=== PATIENT | female | born 1960 | race African-American/Black ===

== ENCOUNTER 2019-04-22 10:15 | Inpatient (IN) | payer OTHER ==
[~2019-04-22] VITALS: Ht 243.8 cm; Wt 52.6 kg
[2019-04-22 10:36] VITALS: BP 184/101
[2019-04-22 10:52] LABS: BASOPHILS % (AUTO) 0.3 % (0.0-2.0); EOSINOPHILS # (AUTO) 0.1 K/uL (0-0.4); EOSINOPHILS % (AUTO) 1.9 % (0.0-4.0); HEMATOCRIT 35.9 % (36-48); LYMPHOCYTES # (AUTO) 1.9 K/uL (2.5-16.5); LYMPHOCYTES % (AUTO) 39.5 % (20.5-51.1); MEAN CORPUSCULAR HEMOGLOBIN 29 pg (27-31); MEAN CORPUSCULAR HGB CONC 33 g/dL (33-37); MEAN CORPUSCULAR VOLUME 85.3 fL (80-94); MONOCYTES # (AUTO) 0.4 K/uL (0.8-1.0); MONOCYTES % (AUTO) 8.4 % (1.7-9.3); NEUTROPHILS # (AUTO) 2.4 K/uL (1.8-7.7); NEUTROPHILS % (AUTO) 49.9 % (42.2-75.2); PLATELET COUNT (AUTO) 273 K/uL (140-450); RED BLOOD CELL COUNT(AUTO) 4.21 MIL/uL (4.20-5.40); RED CELL DISTRIBUTION WIDTH 15.9 % (11.6-13.7); WHITE BLOOD COUNT (AUTO) 4.9 K/uL (4.8-10.8)
[2019-04-22] MEDS ORDERED: NITROGLYCERIN 2% 1 GM PKT TP ONE (11:05)
[2019-04-22] MEDS ORDERED: ASPIRIN 81 MG TAB.CHEW PO ONE (11:05)
[2019-04-22] MEDS ORDERED: ONDANSETRON 4 MG/2 ML VIAL IVP ONE (11:05)
[2019-04-22] MEDS ORDERED: fentaNYL 0.05 MG/ML VIAL IVP ONE (11:05)
[2019-04-22 11:09] LABS: ANION GAP 12.6 (8-16); CARBON DIOXIDE 26.9 mmol/L (21-32); POTASSIUM 4.5 mmol/L (3.5-5.1)
[2019-04-22 11:15] LABS: ALBUMIN 4.1 g/dL (3.4-5.0); TOTAL BILIRUBIN 0.3 mg/dL (0.0-1.0)
[2019-04-22] MEDS ORDERED: BUPR300T70 PO (11:55)
[2019-04-22] MEDS ORDERED: SPIR50TA PO (11:55)
[2019-04-22] MEDS ORDERED: METF1000 PO (11:55)
[2019-04-22] MEDS ORDERED: TRA200 PO (11:55)
[2019-04-22] MEDS ORDERED: TICA60TA PO (11:55)
[2019-04-22] MEDS ORDERED: GLIP10TA3 PO (11:55)
[2019-04-22] MEDS ORDERED: LIP80 PO (11:55)
[2019-04-22] MEDS ORDERED: CITA40TA13 PO (11:55)
[2019-04-22] MEDS ORDERED: LURA40TA PO (11:55)
[2019-04-22] MEDS ORDERED: EMPA10TA PO (11:55)
[2019-04-22] MEDS ORDERED: CLON0.2T43 PO (11:55)
[2019-04-22] MEDS ORDERED: DEXTROSE 50% 50 ML SYR IVP PRN (13:00)
[2019-04-22] MEDS: cloNIDine 0.1 MG TAB PO SCH ×3 (13:00→21:40)
[2019-04-22] MEDS ORDERED: ACETAMINOPHEN 325 MG TAB PO PRN (13:00)
[2019-04-22 13:07] VITALS: BP 143/70
[2019-04-22 13:17] LABS: PROTHROMBIN TIME 9.7 secs (10.8-13.4)
[2019-04-22 13:23] LABS: APPEARANCE,URINE CLEAR (CLEAR); BILIRUBIN,URINE NEGATIVE (NEGATIVE); BLOOD, URINE NEGATIVE (NEGATIVE); COLOR,URINE YELLOW (YELLOW); LEUKOCYTE ESTERASE ,URINE NEGATIVE (NEGATIVE); NITRITE, URINE NEGATIVE (NEGATIVE); UGLUCOSE NEGATIVE (NEGATIVE)
[2019-04-22] MEDS: NACL 0.9% 1,000 ML IV SCH (14:06)
[2019-04-22 14:14] LABS: THYROID STIMULATING HORMONE 0.97 uIU/mL (0.34-3.74)
[2019-04-22 16:00] VITALS: BP 136/72
[2019-04-22] MEDS: BLOOD GLUCOSE MONITORING 1 DEV DEV FS SCH ×2 (16:48→20:02)
[2019-04-22] MEDS: INSULIN LISPRO SLIDING SCALE 100 UNITS/ML VIAL SUBQ PRN (17:13)
[2019-04-22 19:14] LABS: BARBITURATE, URINE NEG. ng/ml (NEG <=200); BENZODIAZEPINE, URINE NEG. ng/mL (NEG <=200); CANNABINOID, URINE POS. ng/mL (NEG <=50); COCAINE, URINE NEG. ng/mL (NEG <=300); OPIATE, URINE NEG. ng/mL (NEG <=2000); PHENCYCLIDINE SCREEN,URINE NEG. ng/mL (NEG <=25)
[2019-04-22] MEDS ORDERED: LATUDA 20 MG PO SCH (20:00)
[2019-04-22] MEDS: LABETALOL 200 MG TAB PO SCH (20:11)
[2019-04-22] MEDS: glipiZIDE 10 MG TAB PO SCH (20:12)
[2019-04-22] MEDS: BRILINTA 60 MG PO SCH (20:13)
[2019-04-22] MEDS ORDERED: TICAGRELOR 60 MG PO SCH (21:00)
[2019-04-22 21:12] VITALS: BP 137/68
[2019-04-22 21:30] VITALS: BP 165/85
[2019-04-22 23:30] VITALS: BP 126/77
[2019-04-23] MEDS: NACL 0.9% 1,000 ML IV SCH ×2 (03:07→22:10)
[2019-04-23 04:00] VITALS: BP 103/64
[2019-04-23] MEDS: BLOOD GLUCOSE MONITORING 1 DEV DEV FS SCH ×4 (05:55→21:00)
[2019-04-23 06:31] LABS: MAGNESIUM 1.8 mg/dL (1.8-2.4)
[2019-04-23 06:33] LABS: ANION GAP 12.9 (8-16); CARBON DIOXIDE 25.3 mmol/L (21-32); CREATININE 0.9 mg/dL (0.6-1.3); POTASSIUM 4.2 mmol/L (3.5-5.1)
[2019-04-23 06:36] LABS: BASOPHILS % (AUTO) 0.3 % (0.0-2.0); EOSINOPHILS # (AUTO) 0.1 K/uL (0-0.4); EOSINOPHILS % (AUTO) 1.1 % (0.0-4.0); HEMATOCRIT 31.6 % (36-48); HEMOGLOBIN 10.6 g/dL (12.0-16.0); LYMPHOCYTES # (AUTO) 1.9 K/uL (2.5-16.5); LYMPHOCYTES % (AUTO) 40.4 % (20.5-51.1); MEAN CORPUSCULAR HEMOGLOBIN 29 pg (27-31); MEAN CORPUSCULAR HGB CONC 33 g/dL (33-37); MEAN CORPUSCULAR VOLUME 85.4 fL (80-94); MONOCYTES # (AUTO) 0.4 K/uL (0.8-1.0); MONOCYTES % (AUTO) 7.6 % (1.7-9.3); NEUTROPHILS # (AUTO) 2.4 K/uL (1.8-7.7); NEUTROPHILS % (AUTO) 50.6 % (42.2-75.2); PLATELET COUNT (AUTO) 218 K/uL (140-450); RED CELL DISTRIBUTION WIDTH 16.1 % (11.6-13.7); WHITE BLOOD COUNT (AUTO) 4.7 K/uL (4.8-10.8)
[2019-04-23 07:14] LABS: CHOL/HDL RATIO 4.6 (1-4.5)
[2019-04-23 08:00] VITALS: BP 135/79
[2019-04-23] MEDS ORDERED: NON-FORMULARY ITEM (Lurasidone HCl (Latuda) 20 MG) PO SCH (09:00)
[2019-04-23] MEDS ORDERED: EMPAGLIFLOZIN 10 MG PO SCH (09:00)
[2019-04-23] MEDS ORDERED: NON-FORMULARY ITEM (Bupropion HCl* (Wellbutrin Xl*) 1 TAB) PO SCH (09:00)
[2019-04-23] MEDS ORDERED: REGADENOSON 0.4 MG/5 ML SYR IV SCH (09:45)
[2019-04-23] MEDS: ATORVASTATIN 80 MG TAB PO SCH (09:46)
[2019-04-23] MEDS: glipiZIDE 10 MG TAB PO SCH ×2 (09:47→22:00)
[2019-04-23] MEDS: LABETALOL 200 MG TAB PO SCH ×2 (09:47→23:26)
[2019-04-23] MEDS: ASPIRIN 81 MG TAB.CHEW PO SCH (09:47)
[2019-04-23] MEDS: BUPROPION HCL XL 300 MG TABLET PO SCH (09:48)
[2019-04-23] MEDS: JARDIANCE 10 MG PO SCH (09:48)
[2019-04-23] MEDS: BRILINTA 60 MG PO SCH ×2 (09:49→22:00)
[2019-04-23 09:57] VITALS: BP 140/89
[2019-04-23] MEDS: cloNIDine 0.1 MG TAB PO SCH ×2 (09:57→22:00)
[2019-04-23] MEDS: SPIRONOLACTONE 50 MG TAB PO SCH (09:58)
[2019-04-23] MEDS: NITROGLYCERIN 0.4 MG TAB SL PRN ×3 (11:29→11:45)
[2019-04-23] MEDS ORDERED: MORPHINE SULFATE 2 MG/ML SYR IV PRN (11:45)
[2019-04-23 12:00] VITALS: BP 145/75
[2019-04-23] MEDS: KETOROLAC 30 MG/ML VIAL IVP PRN (14:37)
[2019-04-23 16:00] VITALS: BP 146/72
[2019-04-23] MEDS: LATUDA 20 MG PO SCH (18:54)
[2019-04-23 20:00] VITALS: BP 137/69
[2019-04-23] MEDS: ONDANSETRON 4 MG/2 ML VIAL IM/IVP PRN (21:39)
[2019-04-24] VITALS: BP 126/69
[2019-04-24 04:00] VITALS: BP 136/62
[2019-04-24] MEDS: BLOOD GLUCOSE MONITORING 1 DEV DEV FS SCH ×4 (05:10→20:32)
[2019-04-24 06:55] LABS: BASOPHILS % (AUTO) 0.3 % (0.0-2.0); EOSINOPHILS % (AUTO) 0.8 % (0.0-4.0); LYMPHOCYTES # (AUTO) 1.8 K/uL (2.5-16.5); LYMPHOCYTES % (AUTO) 33.1 % (20.5-51.1); MEAN CORPUSCULAR HEMOGLOBIN 29 pg (27-31); MEAN CORPUSCULAR HGB CONC 34 g/dL (33-37); MEAN CORPUSCULAR VOLUME 85.3 fL (80-94); MONOCYTES # (AUTO) 0.5 K/uL (0.8-1.0); MONOCYTES % (AUTO) 8.2 % (1.7-9.3); NEUTROPHILS # (AUTO) 3.2 K/uL (1.8-7.7); NEUTROPHILS % (AUTO) 57.6 % (42.2-75.2); PLATELET COUNT (AUTO) 233 K/uL (140-450); RED BLOOD CELL COUNT(AUTO) 3.86 MIL/uL (4.20-5.40); RED CELL DISTRIBUTION WIDTH 16.2 % (11.6-13.7); WHITE BLOOD COUNT (AUTO) 5.5 K/uL (4.8-10.8)
[2019-04-24 07:05] LABS: MAGNESIUM 1.9 mg/dL (1.8-2.4); PHOSPHORUS 3.5 mg/dL (2.5-4.9)
[2019-04-24 07:29] LABS: CARBON DIOXIDE 22.3 mmol/L (21-32); POTASSIUM 4.3 mmol/L (3.5-5.1)
[2019-04-24 08:00] VITALS: BP 159/76
[2019-04-24] MEDS: glipiZIDE 10 MG TAB PO SCH ×2 (09:00→21:00)
[2019-04-24 09:36] LABS: AMYLASE 104 U/L (25-115); LIPASE 286 U/L (73-393)
[2019-04-24] MEDS: ATORVASTATIN 80 MG TAB PO SCH (10:00)
[2019-04-24] MEDS: cloNIDine 0.1 MG TAB PO SCH ×2 (10:01→20:26)
[2019-04-24] MEDS: ASPIRIN 81 MG TAB.CHEW PO SCH (10:02)
[2019-04-24] MEDS: SPIRONOLACTONE 50 MG TAB PO SCH (10:02)
[2019-04-24] MEDS: LABETALOL 200 MG TAB PO SCH ×2 (10:02→20:26)
[2019-04-24] MEDS: BRILINTA 60 MG PO SCH ×2 (10:02→20:26)
[2019-04-24] MEDS: JARDIANCE 10 MG PO SCH (10:03)
[2019-04-24] MEDS: BUPROPION HCL XL 300 MG TABLET PO SCH (10:03)
[2019-04-24] MEDS: ONDANSETRON 4 MG/2 ML VIAL IM/IVP PRN (10:13)
[2019-04-24 12:00] VITALS: BP 153/82
[2019-04-24] MEDS ORDERED: REGADENOSON 0.4 MG/5 ML SYR IV SCH (14:00)
[2019-04-24 16:00] VITALS: BP 129/70
[2019-04-24] MEDS: LATUDA 20 MG PO SCH (16:27)
[2019-04-24] MEDS: NACL 0.9% 1,000 ML IV SCH (16:27)
[2019-04-24] MEDS ORDERED: BOWEL EVACUANT DRINK 4,000 ML PDS PO SCH (19:30)
[2019-04-25] VITALS: BP 110/73
[2019-04-25] MEDS: BLOOD GLUCOSE MONITORING 1 DEV DEV FS SCH ×4 (06:50→21:40)
[2019-04-25 08:00] VITALS: BP 112/46
[2019-04-25 08:01] LABS: BASOPHILS % (AUTO) 0.3 % (0.0-2.0); EOSINOPHILS % (AUTO) 0.3 % (0.0-4.0); HEMATOCRIT 32.9 % (36-48); LYMPHOCYTES # (AUTO) 1.7 K/uL (2.5-16.5); MEAN CORPUSCULAR HEMOGLOBIN 29 pg (27-31); MEAN CORPUSCULAR HGB CONC 34 g/dL (33-37); MEAN CORPUSCULAR VOLUME 85.4 fL (80-94); MONOCYTES # (AUTO) 0.5 K/uL (0.8-1.0); MONOCYTES % (AUTO) 7.8 % (1.7-9.3); NEUTROPHILS # (AUTO) 3.7 K/uL (1.8-7.7); NEUTROPHILS % (AUTO) 62.6 % (42.2-75.2); PLATELET COUNT (AUTO) 245 K/uL (140-450); RED BLOOD CELL COUNT(AUTO) 3.85 MIL/uL (4.20-5.40); RED CELL DISTRIBUTION WIDTH 15.8 % (11.6-13.7); WHITE BLOOD COUNT (AUTO) 5.9 K/uL (4.8-10.8)
[2019-04-25] MEDS: NACL 0.9% 1,000 ML IV SCH (08:10)
[2019-04-25 08:14] LABS: ANION GAP 15.2 (8-16); CARBON DIOXIDE 22.6 mmol/L (21-32); POTASSIUM 3.8 mmol/L (3.5-5.1)
[2019-04-25 08:45] LABS: PHOSPHORUS 3.2 mg/dL (2.5-4.9)
[2019-04-25] MEDS: cloNIDine 0.1 MG TAB PO SCH ×2 (09:00→21:19)
[2019-04-25] MEDS: ASPIRIN 81 MG TAB.CHEW PO SCH (09:27)
[2019-04-25] MEDS: ATORVASTATIN 80 MG TAB PO SCH (09:27)
[2019-04-25] MEDS: SPIRONOLACTONE 50 MG TAB PO SCH (09:29)
[2019-04-25] MEDS: glipiZIDE 10 MG TAB PO SCH ×2 (09:36→21:38)
[2019-04-25] MEDS: BUPROPION HCL XL 300 MG TABLET PO SCH (09:40)
[2019-04-25] MEDS: BRILINTA 60 MG PO SCH ×2 (09:40→21:41)
[2019-04-25] MEDS: JARDIANCE 10 MG PO SCH (09:41)
[2019-04-25] MEDS: LABETALOL 200 MG TAB PO SCH ×2 (09:42→21:00)
[2019-04-25] MEDS: KETOROLAC 30 MG/ML VIAL IVP PRN (09:47)
[2019-04-25 16:00] VITALS: BP 118/80
[2019-04-25] MEDS: LATUDA 20 MG PO SCH (18:17)
[2019-04-25] MEDS ORDERED: cloNIDine 0.1 MG TAB ONE (21:29)
[2019-04-26] VITALS: BP 144/70
[2019-04-26] MEDS: NACL 0.9% 1,000 ML IV SCH ×2 (00:50→09:19)
[2019-04-26] MEDS: BLOOD GLUCOSE MONITORING 1 DEV DEV FS SCH ×4 (06:49→21:19)
[2019-04-26] MEDS: INSULIN LISPRO SLIDING SCALE 100 UNITS/ML VIAL SUBQ PRN (06:50)
[2019-04-26 07:58] LABS: BASOPHILS % (AUTO) 0.3 % (0.0-2.0); EOSINOPHILS % (AUTO) 0.9 % (0.0-4.0); HEMATOCRIT 29.4 % (36-48); HEMOGLOBIN 9.8 g/dL (12.0-16.0); LYMPHOCYTES # (AUTO) 1.3 K/uL (2.5-16.5); LYMPHOCYTES % (AUTO) 34.1 % (20.5-51.1); MEAN CORPUSCULAR HEMOGLOBIN 28 pg (27-31); MEAN CORPUSCULAR HGB CONC 33 g/dL (33-37); MEAN CORPUSCULAR VOLUME 85.3 fL (80-94); MONOCYTES # (AUTO) 0.3 K/uL (0.8-1.0); MONOCYTES % (AUTO) 7.9 % (1.7-9.3); NEUTROPHILS # (AUTO) 2.1 K/uL (1.8-7.7); NEUTROPHILS % (AUTO) 56.8 % (42.2-75.2); PLATELET COUNT (AUTO) 220 K/uL (140-450); RED BLOOD CELL COUNT(AUTO) 3.45 MIL/uL (4.20-5.40); RED CELL DISTRIBUTION WIDTH 15.6 % (11.6-13.7); WHITE BLOOD COUNT (AUTO) 3.7 K/uL (4.8-10.8)
[2019-04-26 08:00] VITALS: BP 140/76
[2019-04-26 08:25] LABS: ANION GAP 12.7 (8-16); CARBON DIOXIDE 25.4 mmol/L (21-32); CREATININE 0.9 mg/dL (0.6-1.3); POTASSIUM 4.1 mmol/L (3.5-5.1)
[2019-04-26 08:28] LABS: MAGNESIUM 1.9 mg/dL (1.8-2.4); PHOSPHORUS 2.9 mg/dL (2.5-4.9)
[2019-04-26] MEDS: LABETALOL 200 MG TAB PO SCH ×2 (09:21→21:21)
[2019-04-26] MEDS: cloNIDine 0.1 MG TAB PO SCH ×2 (09:21→21:18)
[2019-04-26] MEDS: ATORVASTATIN 80 MG TAB PO SCH (09:22)
[2019-04-26] MEDS: ASPIRIN 81 MG TAB.CHEW PO SCH (09:22)
[2019-04-26] MEDS: SPIRONOLACTONE 50 MG TAB PO SCH (09:23)
[2019-04-26] MEDS: glipiZIDE 10 MG TAB PO SCH ×2 (09:23→21:19)
[2019-04-26] MEDS: JARDIANCE 10 MG PO SCH (09:26)
[2019-04-26] MEDS: BRILINTA 60 MG PO SCH ×2 (09:27→21:20)
[2019-04-26] MEDS: BUPROPION HCL XL 300 MG TABLET PO SCH (09:27)
[2019-04-26] MEDS: NITROGLYCERIN 0.4 MG TAB SL PRN (10:01)
[2019-04-26 16:00] VITALS: BP 145/69
[2019-04-26] MEDS: LATUDA 20 MG PO SCH (17:47)
[2019-04-26 20:00] VITALS: BP 153/74
[2019-04-27] VITALS: BP 156/79
[2019-04-27 04:00] VITALS: BP 131/73
[2019-04-27] MEDS ORDERED: TRA200 PO (04:17)
[2019-04-27] MEDS ORDERED: [UNRECOGNIZED DRUG - OTHER] PO ×3 (04:17)
[2019-04-27] MEDS ORDERED: HUMSLIDE SUBQ (04:17)
[2019-04-27] MEDS ORDERED: CLON0.1T42 PO ×2 (04:17)
[2019-04-27] MEDS ORDERED: ASPI81CT95 PO (04:17)
[2019-04-27] MEDS ORDERED: GLIP10TA12 PO (04:17)
[2019-04-27] MEDS ORDERED: LIP80 PO (04:17)
[2019-04-27] MEDS ORDERED: SPIR50TA PO (04:18)
[2019-04-27 06:10] VITALS: BP 131/73
[2019-04-27 06:59] LABS: BASOPHILS % (AUTO) 0.3 % (0.0-2.0); EOSINOPHILS # (AUTO) 0.1 K/uL (0-0.4); EOSINOPHILS % (AUTO) 1.1 % (0.0-4.0); HEMATOCRIT 30.4 % (36-48); HEMOGLOBIN 10.4 g/dL (12.0-16.0); LYMPHOCYTES # (AUTO) 1.3 K/uL (2.5-16.5); MEAN CORPUSCULAR HEMOGLOBIN 29 pg (27-31); MEAN CORPUSCULAR HGB CONC 34 g/dL (33-37); MEAN CORPUSCULAR VOLUME 85.2 fL (80-94); MONOCYTES # (AUTO) 0.4 K/uL (0.8-1.0); MONOCYTES % (AUTO) 9.5 % (1.7-9.3); NEUTROPHILS # (AUTO) 2.7 K/uL (1.8-7.7); NEUTROPHILS % (AUTO) 60.1 % (42.2-75.2); PLATELET COUNT (AUTO) 240 K/uL (140-450); RED BLOOD CELL COUNT(AUTO) 3.57 MIL/uL (4.20-5.40); RED CELL DISTRIBUTION WIDTH 15.8 % (11.6-13.7); WHITE BLOOD COUNT (AUTO) 4.5 K/uL (4.8-10.8)
[2019-04-27 07:17] LABS: MAGNESIUM 1.9 mg/dL (1.8-2.4); PHOSPHORUS 3.1 mg/dL (2.5-4.9)
[2019-04-27] MEDS: BLOOD GLUCOSE MONITORING 1 DEV DEV FS SCH (07:45)
[2019-04-27 08:18] LABS: ANION GAP 15.7 (8-16); CARBON DIOXIDE 21.9 mmol/L (21-32); CREATININE 0.9 mg/dL (0.6-1.3); POTASSIUM 3.6 mmol/L (3.5-5.1)
== END 2019-04-27 09:57 | disposition short-term general hospital (02) | DRG 205 ==
LOC: MED 10:15 → MTU 12:08 → MMU 04-25 14:05
PROVIDERS: ADMIT General Practice; ATTEND General Practice
DX: M94.0 Chondrocostal junction syndrome [Tietze] (principal); I21.4 Non-ST elevation (NSTEMI) myocardial infarction; I25.110 Atherosclerotic heart disease of native coronary artery with unstable angina pectoris; K21.9 Gastro-esophageal reflux disease without esophagitis; E11.65 Type 2 diabetes mellitus with hyperglycemia; E78.5 Hyperlipidemia, unspecified; E11.51 Type 2 diabetes mellitus with diabetic peripheral angiopathy without gangrene; F32.9 Major depressive disorder, single episode, unspecified; Z80.0 Family history of malignant neoplasm of digestive organs; Z95.5 Presence of coronary angioplasty implant and graft; I25.2 Old myocardial infarction; Z88.5 Allergy status to narcotic agent; Z79.899 Other long term (current) drug therapy; Z79.84 Long term (current) use of oral hypoglycemic drugs; Z87.891 Personal history of nicotine dependence; Z82.3 Family history of stroke; Z83.3 Family history of diabetes mellitus; Z80.9 Family history of malignant neoplasm, unspecified; Z82.49 Family history of ischemic heart disease and other diseases of the circulatory system; I50.9 Heart failure, unspecified; I11.0 Hypertensive heart disease with heart failure
CPT/HCPCS: 36415; 71045; 80048; 80053; 80305; 81003; 82150; 82948; 83036; 83690; 83735; 83880; 84100; 84436; 84443; 84484; 85025; 85610; 85730; 87070; 87081; 93005; 93017; 93925; 93970; 96374; 96375; 97110; 97116; 97161-GP; 97530; 99285; A9500; A9502; J1885; J2405; J2785; J3010; J7030; Q0092; Q9967

== ENCOUNTER 2019-09-26 04:25 | Emergency (ER) | payer OTHER ==
[~2019-09-26] VITALS: Ht 160 cm; Wt 52.6 kg
[~2019-09-26 04:25] MED LIST: ASPI81CT95 PO; BUPR300T70 PO; CITA40TA13 PO; CLON0.1T42 PO; CLON0.2T43 PO; EMPA10TA PO; GLIP10TA12 PO; GLIP10TA3 PO; HUMSLIDE SUBQ; LIP80 PO; LURA40TA PO; METF1000 PO; SPIR50TA PO; TICA60TA PO; TRA200 PO; [UNRECOGNIZED DRUG - OTHER] PO
[2019-09-26 04:32] VITALS: BP 100/60
--- NOTE | 2019-09-26 04:32 | NUR ---
PT TAKEN TO BED 7
--- NOTE | 2019-09-26 04:36 | NUR ---
58 Y/O FEMALE C/O COUGH, DIARRHEA, AND GENERALIZED WEAKNESS X 2 DAYS. STATES DRY, HACKING COUGH. +CHILLS, STATES SHE DOESNT KNOW IF SHE HAS BEEN FEBRILE. RR EVEN AND UNLABORED. DENIES N/V. 0/10 PAIN. PT STATES SHE HAS BEEN EXPOSED TO FRIEND WHO WAS FLU+. PT SITTING UPRIGHT IN BED CALM AND PLEASANT. VSS. MEDHX: D,M, HLD, CARDIAC DISEASE ALLERGIES: NKA
--- NOTE | 2019-09-26 04:36 | NUR ---
INFLUENZA SWAB COLLECTED
--- NOTE | 2019-09-26 04:47 | NUR ---
DR LIRA AT BEDSIDE EXAMINING PT.
[2019-09-26] MEDS ORDERED: ONDANSETRON 4 MG ODT PO ONE (04:50)
[2019-09-26] MEDS ORDERED: KETOROLAC 30 MG/ML VIAL IM ONE (04:50)
--- NOTE | 2019-09-26 05:20 | NUR ---
PT DENIES NAUSEA AND BODY ACHES AFTER BEING MEDICATED. PT LAYING IN BED, RR EVEN AND UNLABORED. X1 SIDE RAIL RAISED, BED LOCKED AND IN LOW POSITION. WILL CONTINUE TO MONITOR.
--- NOTE | 2019-09-26 05:54 | NUR ---
X-RAY AT BEDSIDE
--- NOTE | 2019-09-26 06:16 | NUR ---
RESTING WITH EYES CLOSED, AROUSABLE TO NAME. DENIES PAIN AT THIS TIME. WILL CONTINUE TO MONITOR.
[2019-09-26 06:23] VITALS: BP 100/60
--- NOTE | 2019-09-26 06:23 | NUR ---
Patient discharged with v/s stable. Written and verbal after care instructions given and explained. Patient alert, oriented and verbalized understanding of instructions. Ambulatory with steady gait. All questions addressed prior to discharge. ID band removed. Patient advised to follow up with PMD. Rx of ZOFRAN AND ACETAMINOPHEN given. Patient educated on indication of medication including possible reaction and side effects. Opportunity to ask questions provided and answered.
== END 2019-09-26 06:23 | disposition home or self-care (01) ==
LOC: MED 04:25
DX: R53.1 Weakness (principal); J06.9 Acute upper respiratory infection, unspecified; I25.2 Old myocardial infarction; E11.9 Type 2 diabetes mellitus without complications; I10 Essential (primary) hypertension; Z88.5 Allergy status to narcotic agent; Z79.899 Other long term (current) drug therapy
CPT/HCPCS: 71045; 81002; 87804; 96372; 99284; J1885; Q0092; Q0162

== ENCOUNTER 2021-05-18 01:22 | Inpatient (IN) | payer OTHER ==
[~2021-05-18] VITALS: Ht 160 cm; Wt 47.6 kg
[~2021-05-18 01:22] MED LIST changes: +CLON-1170 PO; -CLON0.2T43 PO
--- NOTE | 2021-05-18 01:24 | NUR ---
PT BROUGHT TO BED 6 VIA BRODIE HERZOG
--- NOTE | 2021-05-18 01:25 | NUR ---
BIBA TO ROOM 6 WITH C/O CP X 1 DAY. IS AWAKE ALERT, AND ORIENTED, SKIN IS WARM AND DRY. ATTACHED TO CM = SR WITHOUT ECTOPY. PT DESCRIBES PAIN PRESSURE UNDER LEFT BREAST MED HX: STENTS, DM, HTN, HLD ALLERGIES: NKA
[2021-05-18] MEDS ORDERED: ENOXAPARIN 60 MG/0.6 ML SYR SUBQ ONE (01:30)
[2021-05-18] MEDS ORDERED: NITROGLYCERIN 2% 1 GM PKT TP ONE (01:30)
[2021-05-18] MEDS ORDERED: ASPIRIN 325 MG TAB PO ONE (01:30)
[2021-05-18 01:33] VITALS: BP 144/71
[2021-05-18 01:48] LABS: BASOPHILS % (AUTO) 0.7 % (0.0-2.0); EOSINOPHILS # (AUTO) 0.1 K/uL (0-0.4); EOSINOPHILS % (AUTO) 1.3 % (0.0-4.0); HEMATOCRIT 29.3 % (36-48); HEMOGLOBIN 9.9 g/dL (12.0-16.0); LYMPHOCYTES # (AUTO) 2.3 K/uL (2.5-16.5); MEAN CORPUSCULAR HEMOGLOBIN 30 pg (27-31); MEAN CORPUSCULAR HGB CONC 34 g/dL (33-37); MEAN CORPUSCULAR VOLUME 87.3 fL (80-94); MONOCYTES # (AUTO) 0.6 K/uL (0.8-1.0); NEUTROPHILS # (AUTO) 3.4 K/uL (1.8-7.7); PLATELET COUNT (AUTO) 230 K/uL (140-450); RED BLOOD CELL COUNT(AUTO) 3.36 MIL/uL (4.20-5.40); RED CELL DISTRIBUTION WIDTH 16.6 % (11.6-13.7); WHITE BLOOD COUNT (AUTO) 6.4 K/uL (4.8-10.8)
[2021-05-18 02:08] LABS: ALBUMIN 3.6 g/dL (3.4-5.0); CARBON DIOXIDE 25.7 mmol/L (21-32); CREATININE 0.8 mg/dL (0.6-1.3); POTASSIUM 3.7 mmol/L (3.5-5.1); TOTAL BILIRUBIN 0.1 mg/dL (0.0-1.0)
[2021-05-18 02:20] LABS: CREATINE KINASE MB 0.5 ng/mL (0-3.6)
--- NOTE | 2021-05-18 03:10 | NUR ---
AMBULATED TO BR WITH STEADY GAIT
--- NOTE | 2021-05-18 05:50 | NUR ---
elenita swab obtained and sent to lab
[2021-05-18] MEDS ORDERED: TICA90TA PO (06:23)
[2021-05-18] MEDS ORDERED: ASPI-1822 PO (06:23)
[2021-05-18] MEDS ORDERED: LISI-487 PO (06:23)
[2021-05-18] MEDS ORDERED: TTS3 TD (06:23)
[2021-05-18] MEDS ORDERED: GLIP10TE PO (06:23)
[2021-05-18] MEDS ORDERED: SPIR50TA PO (06:23)
[2021-05-18] MEDS ORDERED: EMPA10TA PO (06:23)
[2021-05-18] MEDS ORDERED: METF-350 PO (06:23)
[2021-05-18] MEDS ORDERED: ATOR20TA PO (06:23)
[2021-05-18] MEDS ORDERED: LABE300T5 PO (06:23)
[2021-05-18] MEDS ORDERED: ISOS20TA13 PO (06:24)
--- NOTE | 2021-05-18 07:20 | NUR ---
RECEIVED REPORT FROM MINNIE MARCANO FOR CONTINUATION OF CARE
--- NOTE | 2021-05-18 07:20 | NUR ---
[facility]comb in [facility] - 05/18/21 at 0720 by MEDMANJIT RECEIVED REPORT FROM MINNIE WALLER FOR CONTINUATION OF CARE
--- NOTE | 2021-05-18 08:28 | NUR ---
PT HAS BEEN PROVIDED WITH DANIELE ZEE
--- NOTE | 2021-05-18 10:02 | NUR ---
Patient appears to be resting comfortably in bed with eyes open and lights on. Vital Signs within normal limits. Respirations even and unlabored. Bed in lowest position with siderail x2 up. Will continue to monitor
--- NOTE | 2021-05-18 11:40 | NUR ---
PT REQUESTING TO LEAVE AMA. SPOKE WITH DR THAO TO NOTIFY. STATED TO SIGN AMA FORM AND TO ADVISE HER TO FOLLOW UP WITH HIM.
--- NOTE | 2021-05-18 11:47 | NUR ---
Patient does not wish to proceed with medical care recommended by DR. THAO. Patient given information related to possible complications, up to and including , which could occur as a result of leaving hospital at this time. Patient verbalizes understanding of risks involved leaving against medical advice. Patient has signed AMA form.
[2021-05-18 11:51] VITALS: BP 167/79
[2021-05-19] MEDS ORDERED: ISOSORBIDE MONONITRATE 30 MG TABER PO SCH (09:00)
[2021-05-19] MEDS ORDERED: ASPIRIN 81 MG TAB.CHEW PO SCH (09:00)
[2021-05-19] MEDS ORDERED: METOPROLOL SUCCINATE 50 MG TABER PO SCH (09:00)
[2021-05-19] MEDS ORDERED: ATORVASTATIN 20 MG TAB PO SCH ×2 (09:00)
== END 2021-05-18 11:47 | disposition left against medical advice (07) | DRG 303 ==
LOC: MED 01:22 → MTU 02:49
PROVIDERS: ADMIT Preventive Medicine Preventive Medicine/Occupational Environmental Medicine; ATTEND Preventive Medicine Preventive Medicine/Occupational Environmental Medicine
DX: I25.119 Atherosclerotic heart disease of native coronary artery with unspecified angina pectoris (principal); I50.22 Chronic systolic (congestive) heart failure; D64.9 Anemia, unspecified; E11.9 Type 2 diabetes mellitus without complications; I11.0 Hypertensive heart disease with heart failure; I25.5 Ischemic cardiomyopathy; F32.9 Major depressive disorder, single episode, unspecified; E78.5 Hyperlipidemia, unspecified; F17.210 Nicotine dependence, cigarettes, uncomplicated; Z20.822 Contact with and (suspected) exposure to COVID-19; Z88.6 Allergy status to analgesic agent; Z79.82 Long term (current) use of aspirin; Z79.4 Long term (current) use of insulin; Z79.899 Other long term (current) drug therapy; I25.2 Old myocardial infarction; Z82.49 Family history of ischemic heart disease and other diseases of the circulatory system; Z82.3 Family history of stroke
CPT/HCPCS: 36415; 71045; 80053; 82550; 82553; 83880; 84484; 85025; 85379; 93005; 96372; 99285; J1650; Q0092

== ENCOUNTER 2021-06-12 16:44 | Emergency (ER) | payer OTHER ==
[~2021-06-12] VITALS: Ht 160 cm; Wt 49.9 kg
[~2021-06-12 16:44] MED LIST changes: +ASPI-1822 PO; +ATOR20TA PO; +GLIP10TE PO; +ISOS20TA13 PO; +LABE300T5 PO; +LISI-487 PO; +METF-350 PO; +TICA90TA PO; +TTS3 TD
--- NOTE | 2021-06-12 16:44 | NUR ---
1638 BIBA ALS TO ER BED 4
[2021-06-12] MEDS ORDERED: DEXTROSE 10% 250 ML IV SCH (16:50)
[2021-06-12 16:59] VITALS: BP 164/78
--- NOTE | 2021-06-12 17:04 | NUR ---
LAB BEDSIDE COLLECTING BLOOD WORK
--- NOTE | 2021-06-12 17:10 | NUR ---
PT PLACED INTO WARM BLANKETS AND WET CLOTHES REMOVED. WILL MONITOR PATIENT TEMP
--- NOTE | 2021-06-12 17:17 | NUR ---
60 Y FEMALE BIBA FROM HOME DUE TO PT BEING DIAPHORETIC X1 HR. PER EMS PT HAS ALSO BEEN SHAKING AND DOES NOT KNOW HER LAST KNOWN MEAL. GLUCOSE ON ARRIVAL WAS 45. PT DENIES ANY PAIN AT THIS TIME AND IS A&OX4. PT CURRENT TEMP IS 93.6 RECTAL AND PATIENT IS COOL TO TOUCH. BREATH SOUNDS CLEAR BILATERALLY AND S1/S2 HEARD PMH: DM, STENT NKA
[2021-06-12 17:41] LABS: BASOPHILS % (AUTO) 0.5 % (0.0-2.0); EOSINOPHILS # (AUTO) 0.1 K/uL (0-0.4); EOSINOPHILS % (AUTO) 0.9 % (0.0-4.0); HEMOGLOBIN 11.5 g/dL (12.0-16.0); LYMPHOCYTES # (AUTO) 2.3 K/uL (2.5-16.5); LYMPHOCYTES % (AUTO) 32.2 % (20.5-51.1); MEAN CORPUSCULAR HEMOGLOBIN 29 pg (27-31); MEAN CORPUSCULAR HGB CONC 33 g/dL (33-37); MEAN CORPUSCULAR VOLUME 88.6 fL (80-94); MONOCYTES # (AUTO) 0.4 K/uL (0.8-1.0); NEUTROPHILS # (AUTO) 4.4 K/uL (1.8-7.7); NEUTROPHILS % (AUTO) 61.4 % (42.2-75.2); PLATELET COUNT (AUTO) 283 K/uL (140-450); RED BLOOD CELL COUNT(AUTO) 3.95 MIL/uL (4.20-5.40); RED CELL DISTRIBUTION WIDTH 17.1 % (11.6-13.7); WHITE BLOOD COUNT (AUTO) 7.2 K/uL (4.8-10.8)
[2021-06-12 17:45] LABS: ALBUMIN 4.1 g/dL (3.4-5.0); ANION GAP 12.8 (8-16); CARBON DIOXIDE 28.8 mmol/L (21-32); CREATININE 1.1 mg/dL (0.6-1.3); POTASSIUM 3.6 mmol/L (3.5-5.1); TOTAL BILIRUBIN 0.3 mg/dL (0.0-1.0)
--- NOTE | 2021-06-12 17:45 | NUR ---
PT PROVIDED WITH SANDWHICH, JUICE, CRACKERS, AND APPLE SAUCE BEDSIDE
--- NOTE | 2021-06-12 18:34 | NUR ---
RODRÍGUEZ POTTS MADE AWARE OF TEMPERATURE. GIVEN ORDER TO OBTAIN WARM IV FLUIDS AND BEAR HUGGER
--- NOTE | 2021-06-12 18:54 | NUR ---
BEAR HUGGER PLACED ONTO PATIENT
--- NOTE | 2021-06-12 19:21 | NUR ---
REPORT RECEIVED FROM MINNIE JACOB FOR CONTINUITY OF PT CARE AT THIS TIME.
--- NOTE | 2021-06-12 19:21 | NUR ---
Pt report given to MINNIE hilliard. Transfer of care at this time.
--- NOTE | 2021-06-12 19:29 | NUR ---
PT LAYING IN BED IN R LATERAL POSITION W BLANKETS ON AND BEARHUGGER W X2 SIDERAILS UP FOR PT SAFETY. BED LOCKED IN LOWEST POSITION. PT REPORTS ONLY FEELING COLD. DENIES FEELING DIAPHORETIC, LIGHTHEADED, DIZZY, FATIGUE, ANY PAIN OR OTHER SYMPTOMS. SKIN COOL AND DRY. VSS ON MONITOR. NAD NOTED, WILL CONTINUE TO MONITOR.
--- NOTE | 2021-06-12 19:31 | NUR ---
PT PROVIDED BED CARRILLO PER PT REQUEST. PT TEMP UNREADABLE ORALLY, OR AXILLARY AT THIS TIME, RECTAL TEMP WILL BE RE-ASSESSED AFTER EXTENDED TIME W WARMING METHODS.
--- NOTE | 2021-06-12 20:58 | NUR ---
PT ORAL TEMP TEMP 97.5, ERMD MADE AWARE.
--- NOTE | 2021-06-12 21:03 | NUR ---
PT APPEARS TO BE RESTING W EYES CLOSED, L LATERAL POSITION. BEAR HUGGER AND BLANKETS ON. BREATHING EVEN AND UNLABORED. NAD NOTED, WILL CONTINUE TO MONITOR. VSS ON MONITOR.
--- NOTE | 2021-06-12 21:27 | NUR ---
PT AMBULATED DOWN THE VAZ AND TO THE BATHROOM W STEADY GAIT. PT DENIES ANY LIGHTHEADEDNESS OR DIZZYNESS. REPORTS SHE FEELS OK.
[2021-06-12 22:53] VITALS: BP 126/59
--- NOTE | 2021-06-12 22:53 | NUR ---
Patient discharged with v/s stable. Written and verbal after care instructions given and explained. Patient verbalized understanding. Ambulatory with steady gait. PROVIDED [employer] All questions addressed prior to discharge. Advised to follow up with PMD.
== END 2021-06-12 22:53 | disposition home or self-care (01) ==
LOC: MED 16:44
DX: E11.65 Type 2 diabetes mellitus with hyperglycemia (principal); I10 Essential (primary) hypertension; F17.210 Nicotine dependence, cigarettes, uncomplicated; Z79.4 Long term (current) use of insulin; Z79.899 Other long term (current) drug therapy; Z79.82 Long term (current) use of aspirin; Z88.5 Allergy status to narcotic agent
CPT/HCPCS: 36415; 80053; 81002; 84484; 85025; 93005; 96365; 99285

== ENCOUNTER 2022-02-23 12:15 | Emergency (ER) | payer OTHER ==
[~2022-02-23] VITALS: Ht 167.6 cm; Wt 48.2 kg
[~2022-02-23 12:15] MED LIST changes: -LURA40TA PO; +LURA40TA1 PO; +METF-1274 PO; -METF1000 PO
[2022-02-23 12:30] VITALS: BP 190/93
--- NOTE | 2022-02-23 12:38 | NUR ---
PT AMB TO ER BED 8
--- NOTE | 2022-02-23 12:43 | NUR ---
X-RAY AT BEDSIDE.
--- NOTE | 2022-02-23 13:29 | NUR ---
61 y/o female bib self with c/o right wrist pain x 3 weeks. Patient pain level is 9/10. Patient denies trauma or injury. Patient states she has Carpal Tunnel Syndrome. Medical History: Denies NKDA
[2022-02-23] MEDS ORDERED: NAPR-1704 PO (14:03)
[2022-02-23] MEDS ORDERED: KETOROLAC 30 MG/ML VIAL IM ONE (14:05)
[2022-02-23 14:49] VITALS: BP 188/87
--- NOTE | 2022-02-23 14:54 | NUR ---
GOOD PMS POST SPLINT
== END 2022-02-23 14:49 | disposition home or self-care (01) ==
LOC: MED 12:15
DX: M65.4 Radial styloid tenosynovitis [de Quervain] (principal); E11.9 Type 2 diabetes mellitus without complications; I10 Essential (primary) hypertension; Z88.5 Allergy status to narcotic agent; Z79.899 Other long term (current) drug therapy; Z79.4 Long term (current) use of insulin; Z79.82 Long term (current) use of aspirin
CPT/HCPCS: 29125; 73110; 96372; 99283; J1885

== ENCOUNTER 2022-07-19 13:14 | Emergency (ER) | payer OTHER ==
[~2022-07-19] VITALS: Ht 160 cm; Wt 52.2 kg
[~2022-07-19 13:14] MED LIST changes: -LABE300T5 PO; +NAPR-1704 PO; +[UNRECOGNIZED DRUG - CODE] PO
[2022-07-19 13:49] VITALS: BP 98/62
--- NOTE | 2022-07-19 14:24 | NUR ---
61F presents to ED with c/o RLQ ABD pain x1 week. Pt reports pain has progressively worsened in the last week, a constant, cramping like, 10/10 pain that begins in RLQ and radiates to right lower back and down right leg. Pt states it worsens with movement and gets better while laying on her left side. Pt denies N/V/D, denies taking meds for pain.
[2022-07-19] MEDS ORDERED: KETOROLAC 30 MG/ML VIAL IVP ONE (15:00)
[2022-07-19] MEDS ORDERED: NACL 0.9% 1,000 ML IV ONE (15:00)
[2022-07-19 15:02] LABS: APPEARANCE,URINE SL CLOUDY (CLEAR); BILIRUBIN,URINE NEGATIVE (NEGATIVE); BLOOD, URINE NEGATIVE (NEGATIVE); COLOR,URINE YELLOW (YELLOW); LEUKOCYTE ESTERASE ,URINE NEGATIVE (NEGATIVE); NITRITE, URINE NEGATIVE (NEGATIVE); UGLUCOSE NEGATIVE (NEGATIVE)
[2022-07-19 15:02] LABS: BASOPHILS # (AUTO) 0.1 K/uL (0.00-0.22); BASOPHILS % (AUTO) 0.9 % (0.0-2.0); EOSINOPHILS # (AUTO) 0.1 K/uL (0-0.4); EOSINOPHILS % (AUTO) 1.4 % (0.0-4.0); HEMATOCRIT 35.1 % (36-48); HEMOGLOBIN 11.8 g/dL (12.0-16.0); LYMPHOCYTES # (AUTO) 2.2 K/uL (2.5-16.5); LYMPHOCYTES % (AUTO) 35.3 % (20.5-51.1); MEAN CORPUSCULAR HEMOGLOBIN 29 pg (27-31); MEAN CORPUSCULAR HGB CONC 34 g/dL (33-37); MEAN CORPUSCULAR VOLUME 85.3 fL (80-94); MONOCYTES # (AUTO) 0.5 K/uL (0.8-1.0); MONOCYTES % (AUTO) 7.8 % (1.7-9.3); NEUTROPHILS # (AUTO) 3.4 K/uL (1.8-7.7); NEUTROPHILS % (AUTO) 54.6 % (42.2-75.2); PLATELET COUNT (AUTO) 258 K/uL (140-450); RED BLOOD CELL COUNT(AUTO) 4.11 MIL/uL (4.20-5.40); RED CELL DISTRIBUTION WIDTH 16.1 % (11.6-13.7); WHITE BLOOD COUNT (AUTO) 6.3 K/uL (4.8-10.8)
[2022-07-19 15:16] LABS: ALBUMIN 3.4 g/dL (3.4-5.0); ANION GAP 5.2 (8-16); CARBON DIOXIDE 31.3 mmol/L (21-32); CREATININE 0.9 mg/dL (0.6-1.3); POTASSIUM 4.5 mmol/L (3.5-5.1); TOTAL BILIRUBIN 0.2 mg/dL (0.0-1.0)
--- NOTE | 2022-07-19 15:21 | NUR ---
Pt taken to CT via w/c.
--- NOTE | 2022-07-19 15:27 | NUR ---
Pt brought back from CT via w/c.
[2022-07-19 15:35] VITALS: BP 171/78
[2022-07-19] MEDS ORDERED: DOCU-299 PO (16:41)
[2022-07-19] MEDS ORDERED: ACET-10509 PO (16:41)
--- NOTE | 2022-07-19 16:56 | NUR ---
IV removed, catheter intact and site benign. Applied folded 4x4 gauze and tape to stop bleeding.
--- NOTE | 2022-07-19 16:57 | NUR ---
Patient discharged with v/s stable. Written and verbal after care instructions ABOUT ABDOMINAL PAIN given and explained. Patient alert, oriented and verbalized understanding of instructions. Ambulatory with steady gait. All questions addressed prior to discharge. ID band removed. Patient advised to follow up with PMD. Rx of TYLENOL AND COLACE given. Patient educated on indication of medication including possible reaction and side effects. Opportunity to ask questions provided and answered.
== END 2022-07-19 16:57 | disposition home or self-care (01) ==
LOC: MED 13:14
DX: R10.31 Right lower quadrant pain (principal); E11.9 Type 2 diabetes mellitus without complications; I10 Essential (primary) hypertension; Z86.69 Personal history of other diseases of the nervous system and sense organs; Z95.5 Presence of coronary angioplasty implant and graft; Z79.899 Other long term (current) drug therapy; Z79.82 Long term (current) use of aspirin; Z79.1 Long term (current) use of non-steroidal anti-inflammatories (NSAID); Z88.5 Allergy status to narcotic agent
CPT/HCPCS: 36415; 74176; 80053; 81003; 81025; 83690; 85025; 96361; 96374; 99284; J1885; J7030

== ENCOUNTER 2022-09-16 07:12 | Emergency (ER) | payer OTHER ==
[~2022-09-16] VITALS: Ht 160 cm; Wt 47.6 kg
[~2022-09-16 07:12] MED LIST changes: +ACET-10509 PO; +DOCU-299 PO
[2022-09-16 07:25] VITALS: BP 170/119
--- NOTE | 2022-09-16 07:27 | NUR ---
PT AMBULATED TO BED 3
[2022-09-16] MEDS ORDERED: KETOROLAC 15 MG/ML VIAL IVP ONE (08:00)
[2022-09-16] MEDS ORDERED: DICYCLOMINE HCL LIQUID 20 MG, ALUMINUM HYD/MAG/SIMETHICONE 30 ML, LIDOCAINE VISCOUS 2% ... PO ONE ×3 (08:00)
[2022-09-16] MEDS ORDERED: NACL 0.9% 1,000 ML IV ONE (08:00)
[2022-09-16] MEDS ORDERED: FAMOTIDINE 20 MG TAB PO ONE (08:00)
[2022-09-16] MEDS ORDERED: ALUMINUM HYD/MAG/SIMETHICONE 30 ML UDC ONE (08:23)
[2022-09-16] MEDS ORDERED: DICYCLOMINE HCL LIQUID 10 MG/5 ML UDC ONE (08:23)
--- NOTE | 2022-09-16 09:00 | NUR ---
A/O ITMES 4, NAD, ABD PAIN NOW 11/03, NO N/V, SB ON CM, O2 SAT 99% RA, SR UP TIMES 2
[2022-09-16 09:20] LABS: PROTHROMBIN TIME 9.9 secs (10.8-13.4)
[2022-09-16 09:22] LABS: ALBUMIN 4.4 g/dL (3.4-5.0); ANION GAP 12.7 (8-16); CARBON DIOXIDE 29.2 mmol/L (21-32); POTASSIUM 3.9 mmol/L (3.5-5.1); TOTAL BILIRUBIN 0.5 mg/dL (0.0-1.0)
[2022-09-16] MEDS ORDERED: FAMO-90 PO (09:29)
[2022-09-16 09:48] LABS: BASOPHILS % (AUTO) 0.5 % (0.0-2.0); EOSINOPHILS % (AUTO) 0.4 % (0.0-4.0); HEMATOCRIT 38.3 % (36-48); HEMOGLOBIN 13.1 g/dL (12.0-16.0); LYMPHOCYTES % (AUTO) 28.7 % (20.5-51.1); MEAN CORPUSCULAR HEMOGLOBIN 29 pg (27-31); MEAN CORPUSCULAR HGB CONC 34 g/dL (33-37); MEAN CORPUSCULAR VOLUME 84.1 fL (80-94); MONOCYTES # (AUTO) 0.5 K/uL (0.8-1.0); NEUTROPHILS # (AUTO) 4.5 K/uL (1.8-7.7); NEUTROPHILS % (AUTO) 63.4 % (42.2-75.2); PLATELET COUNT (AUTO) 229 K/uL (140-450); RED BLOOD CELL COUNT(AUTO) 4.56 MIL/uL (4.20-5.40); RED CELL DISTRIBUTION WIDTH 16.4 % (11.6-13.7)
--- NOTE | 2022-09-16 09:50 | NUR ---
A/O TIMES 4, NAD, ABD PAIN 09/05, NO N/V, SB ON CM, O2 SAT 99% RA, SR UP TIMES 2
[2022-09-16 10:26] VITALS: BP 162/78
--- NOTE | 2022-09-16 10:30 | NUR ---
Patient discharged with v/s stable. Written and verbal after care instructions given and explained. Patient verbalized understanding. Ambulatory with steady gait. All questions addressed prior to discharge. Advised to follow up with PMDIN 3-4 DAYS.
== END 2022-09-16 10:30 | disposition home or self-care (01) ==
LOC: MED 07:12
DX: K29.70 Gastritis, unspecified, without bleeding (principal); E11.65 Type 2 diabetes mellitus with hyperglycemia; I10 Essential (primary) hypertension; I25.10 Atherosclerotic heart disease of native coronary artery without angina pectoris; D25.9 Leiomyoma of uterus, unspecified; F17.210 Nicotine dependence, cigarettes, uncomplicated; Z71.6 Tobacco abuse counseling; Z79.4 Long term (current) use of insulin; Z79.899 Other long term (current) drug therapy; Z88.5 Allergy status to narcotic agent
CPT/HCPCS: 36415; 74176; 80053; 83605; 83690; 85025; 85610; 85730; 87040; 96361; 96374; 99285; J1885; J7030; 96365

== ENCOUNTER 2022-10-11 13:30 | Emergency (ER) | payer OTHER ==
[~2022-10-11] VITALS: Ht 160 cm; Wt 50.3 kg
[~2022-10-11 13:30] MED LIST changes: +FAMO-90 PO
[2022-10-11 13:36] VITALS: BP 171/97
[2022-10-11 14:41] LABS: BASOPHILS % (AUTO) 0.7 % (0.0-2.0); EOSINOPHILS # (AUTO) 0.1 K/uL (0-0.4); EOSINOPHILS % (AUTO) 0.8 % (0.0-4.0); HEMATOCRIT 35.2 % (36-48); HEMOGLOBIN 11.7 g/dL (12.0-16.0); LYMPHOCYTES # (AUTO) 2.1 K/uL (2.5-16.5); LYMPHOCYTES % (AUTO) 30.2 % (20.5-51.1); MEAN CORPUSCULAR HEMOGLOBIN 28 pg (27-31); MEAN CORPUSCULAR HGB CONC 33 g/dL (33-37); MEAN CORPUSCULAR VOLUME 84.7 fL (80-94); MONOCYTES # (AUTO) 0.6 K/uL (0.8-1.0); MONOCYTES % (AUTO) 8.8 % (1.7-9.3); NEUTROPHILS # (AUTO) 4.1 K/uL (1.8-7.7); NEUTROPHILS % (AUTO) 59.5 % (42.2-75.2); PLATELET COUNT (AUTO) 233 K/uL (140-450); RED BLOOD CELL COUNT(AUTO) 4.16 MIL/uL (4.20-5.40); RED CELL DISTRIBUTION WIDTH 16.4 % (11.6-13.7); WHITE BLOOD COUNT (AUTO) 6.9 K/uL (4.8-10.8)
[2022-10-11 15:01] LABS: ALBUMIN 3.9 g/dL (3.4-5.0); CARBON DIOXIDE 32.4 mmol/L (21-32); CREATININE 0.9 mg/dL (0.6-1.3); POTASSIUM 4.4 mmol/L (3.5-5.1); TOTAL BILIRUBIN 0.2 mg/dL (0.0-1.0)
[2022-10-11 16:05] LABS: APPEARANCE,URINE CLEAR (CLEAR); BILIRUBIN,URINE NEGATIVE (NEGATIVE); BLOOD, URINE NEGATIVE (NEGATIVE); COLOR,URINE YELLOW (YELLOW); LEUKOCYTE ESTERASE ,URINE NEGATIVE (NEGATIVE); NITRITE, URINE NEGATIVE (NEGATIVE); UGLUCOSE NEGATIVE (NEGATIVE)
[2022-10-11] MEDS ORDERED: IBUP-2213 PO (16:30)
[2022-10-11 17:03] VITALS: BP 191/77
--- NOTE | 2022-10-11 17:10 | NUR ---
patient will take her own b/p med upon returninig home.
== END 2022-10-11 17:03 | disposition home or self-care (01) ==
LOC: MED 13:30
DX: R51.9 Headache, unspecified (principal); M54.2 Cervicalgia; R42 Dizziness and giddiness; E11.9 Type 2 diabetes mellitus without complications; I25.10 Atherosclerotic heart disease of native coronary artery without angina pectoris; I10 Essential (primary) hypertension; Z79.4 Long term (current) use of insulin; Z79.899 Other long term (current) drug therapy; Z88.5 Allergy status to narcotic agent
CPT/HCPCS: 36415; 70450; 80053; 81003; 85025; 99284

== ENCOUNTER 2023-03-07 12:11 | Emergency (ER) | payer OTHER ==
[~2023-03-07] VITALS: Ht 162.6 cm; Wt 49.9 kg
[~2023-03-07 12:11] MED LIST changes: +IBUP-2213 PO
[2023-03-07 12:19] VITALS: BP 197/115; PULSE 92; RESP 20; TEMP 97.8; O2SAT 97
[2023-03-07 13:07] VITALS: BP 157/79; PULSE 74; RESP 17; O2SAT 98
[2023-03-07] MEDS ORDERED: CLON-1170 PO (13:14)
[2023-03-07] MEDS ORDERED: LISI-487 PO (13:14)
--- NOTE | 2023-03-07 13:18 | NUR ---
Patient discharged with v/s stable. Written and verbal after care instructions given and explained. Patient alert, oriented and verbalized understanding of instructions. Ambulatory with steady gait. All questions addressed prior to discharge. ID band removed. Patient advised to follow up with PMD. Rx of CLONIDINE given. Patient educated on indication of medication including possible reaction and side effects. Opportunity to ask questions provided and answered.
== END 2023-03-07 13:18 | disposition home or self-care (01) ==
LOC: MED 12:11
DX: I11.0 Hypertensive heart disease with heart failure (principal); E11.9 Type 2 diabetes mellitus without complications; Z79.4 Long term (current) use of insulin; Z88.5 Allergy status to narcotic agent; Z79.899 Other long term (current) drug therapy
CPT/HCPCS: 99281

== ENCOUNTER 2023-05-09 14:36 | Emergency (ER) | payer OTHER ==
[~2023-05-09] VITALS: Ht 160 cm; Wt 48.7 kg
[2023-05-09 14:52] VITALS: BP 158/105; PULSE 107; RESP 20; TEMP 98; O2SAT 98
[2023-05-09] MEDS ORDERED: KETOROLAC 30 MG/ML VIAL IM ONE (15:25)
[2023-05-09] MEDS ORDERED: LISI-487 PO (15:26)
[2023-05-09] MEDS ORDERED: CLON-1170 PO (15:26)
[2023-05-09 16:09] VITALS: BP 158/105; PULSE 107; RESP 20; TEMP 98; O2SAT 98
== END 2023-05-09 16:09 | disposition home or self-care (01) ==
LOC: MED 14:36
DX: Z76.0 Encounter for issue of repeat prescription (principal); I11.9 Hypertensive heart disease without heart failure; E11.9 Type 2 diabetes mellitus without complications; Z88.5 Allergy status to narcotic agent; Z79.4 Long term (current) use of insulin; Z79.899 Other long term (current) drug therapy
CPT/HCPCS: 96372; 99283; J1885

== ENCOUNTER 2023-06-12 09:10 | Emergency (ER) | payer OTHER ==
[~2023-06-12] VITALS: Ht 160 cm; Wt 47.6 kg
[2023-06-12 09:17] VITALS: BP 156/84; PULSE 95; RESP 18; TEMP 97.4; O2SAT 95
[2023-06-12 09:52] LABS: BASOPHILS % (AUTO) 0.4 % (0.0-2.0); EOSINOPHILS # (AUTO) 0.1 K/uL (0-0.4); EOSINOPHILS % (AUTO) 0.6 % (0.0-4.0); HEMATOCRIT 41.3 % (36-48); LYMPHOCYTES # (AUTO) 3.1 K/uL (2.5-16.5); LYMPHOCYTES % (AUTO) 30.6 % (20.5-51.1); MEAN CORPUSCULAR HEMOGLOBIN 29 pg (27-31); MEAN CORPUSCULAR HGB CONC 34 g/dL (33-37); MEAN CORPUSCULAR VOLUME 86.2 fL (80-94); MONOCYTES # (AUTO) 0.6 K/uL (0.8-1.0); MONOCYTES % (AUTO) 6.4 % (1.7-9.3); NEUTROPHILS # (AUTO) 6.2 K/uL (1.8-7.7); PLATELET COUNT (AUTO) 277 K/uL (140-450); RED BLOOD CELL COUNT(AUTO) 4.79 MIL/uL (4.20-5.40); RED CELL DISTRIBUTION WIDTH 16.3 % (11.6-13.7)
[2023-06-12 10:11] LABS: ANION GAP 16.4 (8-16); CALCIUM 8.8 mg/dL (8.5-10.1); POTASSIUM 4.4 mmol/L (3.5-5.1); TOTAL BILIRUBIN 0.4 mg/dL (0.0-1.0); TOTAL PROTEIN, SERUM 7.9 g/dL (6.4-8.2)
[2023-06-12] MEDS ORDERED: ALUMINUM HYD/MAG/SIMETHICONE 30 ML UDC PO ONE (11:10)
[2023-06-12] MEDS ORDERED: ONDANSETRON 4 MG ODT PO ONE (11:10)
[2023-06-12] MEDS ORDERED: DICYCLOMINE HCL LIQUID 10 MG/5 ML UDC PO ONE (11:10)
[2023-06-12 11:43] LABS: APPEARANCE,URINE CLEAR (CLEAR); BILIRUBIN,URINE NEGATIVE (NEGATIVE); BLOOD, URINE NEGATIVE (NEGATIVE); COLOR,URINE YELLOW (YELLOW); LEUKOCYTE ESTERASE ,URINE NEGATIVE (NEGATIVE); NITRITE, URINE NEGATIVE (NEGATIVE); PH,URINE 5.5 (5.0-9.0); PROTEIN,URINE NEGATIVE (NEGATIVE); UGLUCOSE TRACE (NEGATIVE); UROBILINOGEN,URINE 0.2 EU/dL (0.2 - 1)
[2023-06-12 11:55] LABS: BACTERIA,URINE OCCASSIONAL /HPF (None Seen); RBC,URINE 0-5 /HPF (0-5); SQUAMOUS EPITHELIAL CELL,UR 0-3 (FEW) /LPF (0-3 (FEW)); WBC,URINE 0-5 /HPF (0-5)
[2023-06-12] MEDS ORDERED: ACET-2619 PO (13:25)
[2023-06-12] MEDS ORDERED: BEN10 PO (13:25)
[2023-06-12] MEDS ORDERED: FAMO-90 PO (13:25)
[2023-06-12] MEDS ORDERED: ONDA-188 PO (13:25)
[2023-06-12] MEDS ORDERED: LISI-487 PO (13:26)
[2023-06-12] MEDS ORDERED: CLON-1170 PO (13:26)
[2023-06-12 13:40] VITALS: O2SAT 95
== END 2023-06-12 13:40 | disposition home or self-care (01) ==
LOC: MED 09:10
DX: K29.70 Gastritis, unspecified, without bleeding (principal); E11.9 Type 2 diabetes mellitus without complications; I11.9 Hypertensive heart disease without heart failure; Z79.4 Long term (current) use of insulin; Z79.899 Other long term (current) drug therapy; Z88.5 Allergy status to narcotic agent
CPT/HCPCS: 36415; 80053; 81001; 83690; 84484; 85025; 93005; 99284; Q0162

== ENCOUNTER 2023-06-16 22:52 | Inpatient (IN) | payer OTHER ==
[~2023-06-16] VITALS: Ht 160 cm; Wt 47.6 kg
[~2023-06-16 22:52] MED LIST changes: +ACET-2619 PO; +BEN10 PO; +ONDA-188 PO
[2023-06-16 23:00] VITALS: BP 180/76; PULSE 74; RESP 17; TEMP 97.8; O2SAT 100
[2023-06-16] MEDS ORDERED: ONDANSETRON 4 MG/2 ML VIAL IVP ONE (23:25)
[2023-06-16 23:51] LABS: BASOPHILS % (AUTO) 0.5 % (0.0-2.0); EOSINOPHILS # (AUTO) 0.1 K/uL (0-0.4); EOSINOPHILS % (AUTO) 0.8 % (0.0-4.0); HEMATOCRIT 39.6 % (36-48); HEMOGLOBIN 13.2 g/dL (12.0-16.0); LYMPHOCYTES # (AUTO) 2.6 K/uL (2.5-16.5); LYMPHOCYTES % (AUTO) 42.5 % (20.5-51.1); MEAN CORPUSCULAR HEMOGLOBIN 29 pg (27-31); MEAN CORPUSCULAR HGB CONC 33 g/dL (33-37); MEAN CORPUSCULAR VOLUME 87.5 fL (80-94); MONOCYTES # (AUTO) 0.4 K/uL (0.8-1.0); MONOCYTES % (AUTO) 6.9 % (1.7-9.3); NEUTROPHILS % (AUTO) 49.3 % (42.2-75.2); PLATELET COUNT (AUTO) 256 K/uL (140-450); RED BLOOD CELL COUNT(AUTO) 4.52 MIL/uL (4.20-5.40); RED CELL DISTRIBUTION WIDTH 16.3 % (11.6-13.7); WHITE BLOOD COUNT (AUTO) 6.1 K/uL (4.8-10.8)
[2023-06-16 23:52] LABS: APPEARANCE,URINE CLEAR (CLEAR); BILIRUBIN,URINE NEGATIVE (NEGATIVE); BLOOD, URINE NEGATIVE (NEGATIVE); COLOR,URINE YELLOW (YELLOW); LEUKOCYTE ESTERASE ,URINE NEGATIVE (NEGATIVE); NITRITE, URINE NEGATIVE (NEGATIVE); PH,URINE 5.5 (5.0-9.0); PROTEIN,URINE NEGATIVE (NEGATIVE); UGLUCOSE NEGATIVE (NEGATIVE); UROBILINOGEN,URINE 0.2 EU/dL (0.2 - 1)
[2023-06-17] VITALS (7 sets, daily range): BP systolic 137–205; BP diastolic 68–84; PULSE 55–97; RESP 16–20; TEMP 96.8–97.7; O2SAT 95–100
[2023-06-17 00:04] LABS: ALBUMIN 3.9 g/dL (3.4-5.0); ANION GAP 12.1 (8-16); CALCIUM 9.2 mg/dL (8.5-10.1); CARBON DIOXIDE 28.8 mmol/L (21-32); CREATININE 0.9 mg/dL (0.6-1.3); POTASSIUM 3.9 mmol/L (3.5-5.1); TOTAL BILIRUBIN 0.3 mg/dL (0.0-1.0); TOTAL PROTEIN, SERUM 7.7 g/dL (6.4-8.2)
[2023-06-17] MEDS ORDERED: NACL 0.9% 500 ML IV ONE (00:35)
[2023-06-17] MEDS ORDERED: fentaNYL citrate 0.05 MG/ML VIAL IVP ONE (00:35)
[2023-06-17] MEDS: NACL 0.9% 1,000 ML IV SCH ×4 (09:20→23:04)
[2023-06-17] MEDS ORDERED: hydrALAZINE 20 MG/ML VIAL IVP PRN (11:25)
[2023-06-17] MEDS ORDERED: CLONIDINE HYDROCHLORIDE 0.1 MG TAB PO STA (17:09)
[2023-06-17] MEDS ORDERED: lisinopriL 20 MG TAB PO STA (17:09)
[2023-06-17] MEDS ORDERED: CLONIDINE HYDROCHLORIDE 0.1 MG TAB ONE (18:22)
[2023-06-17] MEDS ORDERED: lisinopriL 20 MG TAB ONE (18:22)
[2023-06-17] MEDS ORDERED: INSULIN LISPRO SLIDING SCALE 100 UNITS/ML VIAL SUBQ PRN (21:25)
[2023-06-18] VITALS: BP 153/81; PULSE 60; PULSE 86; RESP 16; TEMP 97.4; O2SAT 97
[2023-06-18] MEDS ORDERED: DEXTROSE 50% 50 ML SYR IVP PRN (02:35)
[2023-06-18 04:00] VITALS: BP 139/89; PULSE 59; PULSE 91; RESP 18; TEMP 98; O2SAT 96
[2023-06-18] MEDS: NACL 0.9% 1,000 ML IV SCH (04:32)
[2023-06-18 06:42] LABS: BASOPHILS % (AUTO) 0.5 % (0.0-2.0); EOSINOPHILS % (AUTO) 0.5 % (0.0-4.0); HEMATOCRIT 39.2 % (36-48); HEMOGLOBIN 13.2 g/dL (12.0-16.0); LYMPHOCYTES % (AUTO) 37.2 % (20.5-51.1); MEAN CORPUSCULAR HEMOGLOBIN 29 pg (27-31); MEAN CORPUSCULAR HGB CONC 34 g/dL (33-37); MEAN CORPUSCULAR VOLUME 86.8 fL (80-94); MONOCYTES # (AUTO) 0.4 K/uL (0.8-1.0); MONOCYTES % (AUTO) 7.7 % (1.7-9.3); NEUTROPHILS # (AUTO) 2.9 K/uL (1.8-7.7); NEUTROPHILS % (AUTO) 54.1 % (42.2-75.2); PLATELET COUNT (AUTO) 231 K/uL (140-450); RED BLOOD CELL COUNT(AUTO) 4.51 MIL/uL (4.20-5.40); RED CELL DISTRIBUTION WIDTH 16.1 % (11.6-13.7); WHITE BLOOD COUNT (AUTO) 5.4 K/uL (4.8-10.8)
[2023-06-18 06:59] LABS: ANION GAP 16.6 (8-16); CALCIUM 9.2 mg/dL (8.5-10.1); CARBON DIOXIDE 21.7 mmol/L (21-32); CREATININE 0.8 mg/dL (0.6-1.3); POTASSIUM 4.3 mmol/L (3.5-5.1)
[2023-06-18] MEDS: BLOOD GLUCOSE MONITORING 1 DEV DEV FS SCH ×2 (07:08→11:30)
[2023-06-18 07:12] LABS: CHOL/HDL RATIO 5.8 (1-4.5)
[2023-06-18 08:00] VITALS: BP 176/90; PULSE 105; PULSE 81; PULSE 88; RESP 16; RESP 19; TEMP 98.8; O2SAT 100; O2SAT 95
[2023-06-18] MEDS ORDERED: CLONIDINE HYDROCHLORIDE 0.1 MG TAB PO PRN (08:40)
[2023-06-18] MEDS ORDERED: lisinopriL 20 MG TAB PO SCH (09:00)
[2023-06-18] MEDS ORDERED: ASPIRIN 81 MG TAB.CHEW PO SCH (09:00)
[2023-06-18] MEDS ORDERED: ATORVASTATIN 20 MG TAB PO SCH (09:00)
[2023-06-18] MEDS ORDERED: ATOR40TA PO (12:41)
[2023-06-18 13:10] VITALS: BP_SYST 79; PULSE 87; RESP 19; TEMP 98.3; O2SAT 100
[2023-06-18 13:11] VITALS: PULSE 82
[2023-06-18 13:56] VITALS: BP 148/79; RESP 19; TEMP 98.3
[2023-06-29] MEDS ORDERED: INSU100S22 SUBQ (10:23)
[2023-06-29] MEDS ORDERED: DEC4 PO (10:23)
== END 2023-06-18 15:15 | disposition home or self-care (01) | DRG 440 ==
LOC: MED 22:52 → MTU 06-17 05:55
PROVIDERS: ADMIT Family Medicine; ATTEND Family Medicine
DX: K85.90 Acute pancreatitis without necrosis or infection, unspecified (principal); I16.0 Hypertensive urgency; I25.10 Atherosclerotic heart disease of native coronary artery without angina pectoris; E11.9 Type 2 diabetes mellitus without complications; I10 Essential (primary) hypertension; Z88.5 Allergy status to narcotic agent; Z79.899 Other long term (current) drug therapy; Z79.4 Long term (current) use of insulin; Z79.82 Long term (current) use of aspirin
CPT/HCPCS: 36415; 80048; 80053; 81003; 82948; 83036; 83690; 83735; 85025; 87081; 93005; 96361; 96374; 96375; 99285; J0360; J1815; J2405; J3010

== ENCOUNTER 2024-04-15 01:55 | Emergency (ER) | payer OTHER ==
[~2024-04-15] VITALS: Ht 160 cm; Wt 47.6 kg
[~2024-04-15 01:55] MED LIST changes: -ACET-10509 PO; -ACET-2619 PO; -ASPI-1822 PO; -ASPI81CT95 PO; -ATOR20TA PO; -BEN10 PO; -BUPR300T70 PO; -CITA40TA13 PO; -CLON-1170 PO; -CLON0.1T42 PO; +DEC4 PO; -DOCU-299 PO; -EMPA10TA PO; -FAMO-90 PO; -GLIP10TA12 PO; -GLIP10TA3 PO; -GLIP10TE PO; -HUMSLIDE SUBQ; -IBUP-2213 PO; +INSU100S22 SUBQ; -ISOS20TA13 PO; -LIP80 PO; -LISI-487 PO; -LURA40TA1 PO; -METF-1274 PO; -METF-350 PO; -NAPR-1704 PO; -ONDA-188 PO; -SPIR50TA PO; -TICA60TA PO; -TICA90TA PO; -TRA200 PO; -TTS3 TD; -[UNRECOGNIZED DRUG - CODE] PO; -[UNRECOGNIZED DRUG - OTHER] PO
[2024-04-15 01:58] VITALS: BP 181/98; PULSE 87; RESP 16; TEMP 98; O2SAT 100
[2024-04-15 02:13] VITALS: O2SAT 98
[2024-04-15] MEDS: CLONIDINE HYDROCHLORIDE 0.1 MG TAB PO ONE ×2 (02:48→03:30)
[2024-04-15 02:57] LABS: BASOPHILS % (AUTO) 0.4 % (0.0-2.0); EOSINOPHILS # (AUTO) 0.1 K/uL (0-0.4); EOSINOPHILS % (AUTO) 1.5 % (0.0-4.0); HEMATOCRIT 40.1 % (36-48); HEMOGLOBIN 13.5 g/dL (12.0-16.0); LYMPHOCYTES # (AUTO) 2.7 K/uL (2.5-16.5); LYMPHOCYTES % (AUTO) 45.7 % (20.5-51.1); MEAN CORPUSCULAR HEMOGLOBIN 29 pg (27-31); MEAN CORPUSCULAR HGB CONC 34 g/dL (33-37); MEAN CORPUSCULAR VOLUME 87.6 fL (80-94); MONOCYTES # (AUTO) 0.4 K/uL (0.8-1.0); MONOCYTES % (AUTO) 7.4 % (1.7-9.3); NEUTROPHILS # (AUTO) 2.7 K/uL (1.8-7.7); PLATELET COUNT (AUTO) 233 K/uL (140-450); RED BLOOD CELL COUNT(AUTO) 4.57 MIL/uL (4.20-5.40); RED CELL DISTRIBUTION WIDTH 16.3 % (11.6-13.7)
[2024-04-15 03:00] LABS: ANION GAP 13.2 (8-16); CALCIUM 9.2 mg/dL (8.5-10.1); POTASSIUM 4.2 mmol/L (3.5-5.1)
[2024-04-15] MEDS: ENALAPRILAT 2.5 MG/2 ML VIAL IVP ONE (05:54)
[2024-04-15 06:27] VITALS: BP 167/72; PULSE 54; RESP 14; TEMP 98.2; O2SAT 99
== END 2024-04-15 06:27 | disposition home or self-care (01) ==
LOC: MED 01:55
DX: I10 Essential (primary) hypertension (principal); Z91.148 Patient's other noncompliance with medication regimen for other reason; E11.9 Type 2 diabetes mellitus without complications; Z79.899 Other long term (current) drug therapy; Z79.4 Long term (current) use of insulin; Z88.5 Allergy status to narcotic agent
CPT/HCPCS: 36415; 71045; 80048; 84484; 85025; 93005; 96374; 99285; J3490; Q0092